=== PATIENT | female | born 1980 | race Asian ===

== ENCOUNTER 2019-08-13 23:39 | Emergency (ER) | payer MEDICAID ==
[~2019-08-13] VITALS: Ht 154.9 cm; Wt 59.0 kg
[2019-08-13 23:40] VITALS: BP 164/102
[2019-08-13] MEDS ORDERED: FAMOTIDINE 20 MG TABLET ONE (23:59)
[2019-08-14] MEDS ORDERED: FAMOTIDINE 20 MG TABLET PO ONE
[2019-08-14] MEDS ORDERED: MAALOX/HYOSCYAMINE/LIDOCAINE 45 ML BTL PO ONE
[2019-08-14] MEDS ORDERED: MAALOX/HYOSCYAMINE/LIDOCAINE 45 ML BTL ONE
--- NOTE | 2019-08-14 00:04 | NUR ---
PATIENT TOLERATED MEDICATION ADMINISTRATION POORLY. UPDATED PROVIDER.
[2019-08-14 00:06] LABS: HCG UR SG 1.031 (1.003-1.030); MICROSCOPIC AUTO
[2019-08-14 00:15] LABS: BASOPHILS # (AUTO) 0.06 x10^3/uL (0-0.1); BASOPHILS % (AUTO) 0 % (0-1); EOSINOPHILS # (AUTO) 0.16 x10^3/uL (0-0.4); EOSINOPHILS % (AUTO) 1 % (1-7); LYMPHOCYTES # (AUTO) 2.06 x10^3/uL (1-3.4); LYMPHOCYTES % (AUTO) 14 % (22-44); MD NO; MEAN CORPUSCULAR HEMOGLOBIN 29.5 pg (27.0-34.8); MEAN CORPUSCULAR HGB CONC 33.2 g/dL (32.4-35.8); MEAN CORPUSCULAR VOLUME 88.7 fL (80-100); MEAN PLATELET VOLUME 7.8 fL (7.4-10.4); MONOCYTES # (AUTO) 0.49 x10^3/uL (0.2-0.8); MONOCYTES % (AUTO) 3 % (2-9); NEUTROPHILS # (AUTO) 11.94 x10^3/uL (1.8-6.8); NEUTROPHILS % (AUTO) 81 % (42-75); PLATELET COUNT 358 x10^3/uL (130-400); RED CELL DISTRIBUTION WIDTH 14.4 % (9.6-15.2)
[2019-08-14 00:27] LABS: ALANINE AMINOTRANSFERASE 26 U/L (12-78); ALBUMIN 3.7 g/dL (3.4-5.0); ANION GAP 8 mmol/L (5-15); CALCIUM 8.4 mg/dL (8.5-10.1); CHLORIDE 104 mmol/L (98-107); CREATININE 0.87 mg/dL (0.55-1.02)
[2019-08-14 00:31] LABS: ALKALINE PHOSPHATASE 95 U/L (45-117); BILIRUBIN,TOTAL 0.2 mg/dL (0.2-1.0)
--- NOTE | 2019-08-14 00:43 | NUR ---
PATIENT RESTING IN BED. NO NOTED NEEDS AT THIS TIME. WILL CONTINUE TO MONITOR.
--- NOTE | 2019-08-14 00:53 | NUR ---
PATIENT STATED THAT SHE FELT MUCH BETTER. UPDATED PROVIDER.
--- NOTE | 2019-08-14 01:28 | NUR ---
Patient given discharge instructions and they have confirmed that they understand the instructions. Patient ambulatory with steady gait.
== END 2019-08-14 01:34 | disposition home or self-care (01) ==
LOC: ED 08-14 01:10
DX: K80.20 Calculus of gallbladder without cholecystitis without obstruction (principal); K82.8 Other specified diseases of gallbladder; M79.10 Myalgia, unspecified site; Z98.51 Tubal ligation status
CPT/HCPCS: 36415; 76700; 80053; 81001; 81025; 83690; 84703; 85025; 99284